=== PATIENT | male | born 1965 | race Caucasian/White ===

== ENCOUNTER → 2021-07-28 08:16 | Outpatient (CLI) | payer OTHER, SELFPAY ==
--- NOTE | ~2021-07-28 | MR_ITS ---
EXAMINATION: MR knee RT wo con DATE: 07/28/2021 08:55 INDICATION: Right knee pain TECHNIQUE: Magnetic resonance imaging (MRI) of the right knee was performed without intravenous contr ast. Sequences included coronal PD-weighted FSE, coronal PD-weighted FS FSE, sagittal T2-weighted FS E, sagittal PD-weighted FS FSE and axial PD weighted fat saturated FSE. COMPARISON: None. FINDINGS: Medial compartment: Likely complex tear of the body and posterior horn of the medial meniscus which includes a longitudin al horizontal tear plane extending to the inferior articular surface at the posterior horn. There is medial extrusion of the meniscal body which is small suggesting some secondary loss of meniscal tissu e. Partial-thickness chondral ulceration and deeper fissuring along the medial third of the weightbea ring medial femoral condyle. Additional deep chondral fissuring with minimal underlying subarticular edema-like signal change at the medial margin of the medial tibial plateau. Lateral compartment: Lateral meniscus is normal. Articular cartilage is normal. Patellofemoral compartment: Partial-thickness chondral ulceration along the superior and medial margins of the medial patellar fa cet. Small deep chondral ulceration at the central aspect of the medial trochlea. Ligaments and tendons: The anterior cruciate ligament demonstrates a normal angle relative to Blumensaat line. It appears th ickened with increased intrasubstance signal surrounding intact appearing linear fibers with a celer y stalk appearance. Thickening and mild increased signal of the vertical component of the posterior cruciate ligament suspicious for at least partial tear. The medial collateral ligament is normal. Thi ckening and increased signal of the fibular collateral ligament without significant surrounding edema consistent with scarring related to chronic sprain. The extensor mechanism is normal. Mild tendinopa thy of the distal semimembranosus tendon. The visualized medial and lateral hamstring tendons as well as the iliotibial band are otherwise normal. Fluid: Large right knee joint effusion with prominent synovitis at the suprapatellar pouch. Small Huizar's cy st. Osseous/other: There is lateral patellar tilt and approximately 7 mm lateral patellar subluxation. No fracture or pa thologic marrow replacing process. Intraosseous ganglion cyst underlying the posterior tibial footpla te of the anterior cruciate ligament. IMPRESSION: 1. Mucoid degeneration of the anterior cruciate ligament. 2. Likely chronic partial tears of the posterior cruciate ligament and fibular collateral ligament. 3. Complex medial meniscal tear. 4. 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 5. Likely reactive large knee joint effusion with synovitis. 6. Small Huizar's cyst. Reviewed, dictated and finalized at location B. IMPRESSION: 1. Mucoid degeneration of the anterior cruciate ligament. 2. Likely chronic partial tears of the posterior cruciate ligament and fibular collateral ligament. 3. Complex medial meniscal tear. 4. Osteoarthritis, mild with regions of moderate to high-grade chondromalacia a t the patellofemoral and medial compartments. 5. Likely reactive large knee joint effusion with synovitis. 6. Small Huizar's cyst.
== END ==
PROVIDERS: PCP Internal Medicine; Visit Provider Physician Assistant Medical
DX: S83.231A Complex tear of medial meniscus, current injury, right knee, initial encounter (principal); X58.XXXA Exposure to other specified factors, initial encounter; M71.21 Synovial cyst of popliteal space [Baker], right knee; M17.11 Unilateral primary osteoarthritis, right knee
CPT/HCPCS: 73721